=== PATIENT | male | born 1970 | race Two or more races ===

== ENCOUNTER 2023-08-26 09:41 | Emergency (ER) | payer OTHER ==
[~2023-08-26] VITALS: Ht 180.3 cm; Wt 104.3 kg
[2023-08-26] MEDS ORDERED: LIDOCAINE HCL 100 MG/10ML VIAL IJ ONE (10:00)
[2023-08-26] MEDS ORDERED: CLINDAMYCIN PHOSPHATE 150 MG/ML (600mg) IM ONE (10:45)
== END 2023-08-26 10:50 | disposition home or self-care (01) ==
LOC: ER 09:41
DX: S01.81XA Laceration without foreign body of other part of head, initial encounter (principal); X58.XXXA Exposure to other specified factors, initial encounter; Y93.89 Activity, other specified; Y92.89 Other specified places as the place of occurrence of the external cause; Y99.8 Other external cause status; I10 Essential (primary) hypertension
CPT/HCPCS: 12011; 96372; 99282; J3490